=== PATIENT | female | born 1945 | race Caucasian/White ===

== ENCOUNTER 2017-11-11 11:10 | Outpatient (CLI) | payer OTHER ==
[~2017-11-11 11:10] MED LIST: CIPRO500 MG PO; FOLIC ACID1 MG; GLIMEPIRIDE2 MG; GLUMETZA1000 MG PO; INTRINSI B12-F1 EACH; SKELAGESIC; SYNTHROID137 MCG PO; VASOTEC5 MG PO
== END 2017-11-11 15:37 | disposition home or self-care (01) ==
LOC: RAD 11:10
DX: C50.812 Malignant neoplasm of overlapping sites of left female breast (principal); R07.1 Chest pain on breathing; R07.89 Other chest pain

== ENCOUNTER → 2018-05-03 | Outpatient (CLI) | payer OTHER | END | disposition home or self-care (01) | LOC: TOM 10:21 | DX: C50.812 Malignant neoplasm of overlapping sites of left female breast (principal); R41.0 Disorientation, unspecified ==

== ENCOUNTER 2018-08-07 12:06 | Emergency (ER) | payer OTHER ==
[~2018-08-07] VITALS: Ht 162.6 cm; Wt 90.7 kg
== END 2018-08-07 22:32 | disposition home or self-care (01) ==
LOC: ER 12:06
DX: R63.0 Anorexia (principal); R41.0 Disorientation, unspecified; C50.812 Malignant neoplasm of overlapping sites of left female breast